=== PATIENT | male | born 1980 | race American Indian/Alaskan Native ===

== ENCOUNTER 2016-10-11 12:44 | Emergency (ER) | payer SELFPAY ==
[2016-10-11 12:53] VITALS: BP 130/79
[2016-10-11 13:19] LABS: Basophils % (Auto) 0.4 % (0.0-1.8); Eosinophils % (Auto) 0.1 % (0.0-4.3); Hematocrit 43.8 % (35.5-45.6); Hemoglobin 14.2 gm/dl (11.8-15.2); Mean Corpuscular HGB Conc 33 % (32-34); Mean Corpuscular Hemoglobin 28 pg (28-32); Mean Corpuscular Volume 85 fl (84-94); Platelet Count 309 K/mm3 (140-440); Red Blood Count 5.14 M/mm3 (3.65-5.03); Red Cell Distribution Width 14.1 % (13.2-15.2); White Blood Count 13.3 K/mm3 (4.5-11.0)
[2016-10-11 13:33] LABS: Alanine Aminotransferase 22 units/L (7-56); Albumin/Globulin Ratio 1.5 %; Alkaline Phosphatase 84 units/L (35-129); Anion Gap 19 mmol/L; BUN/Creatinine Ratio 6.66; Blood Urea Nitrogen 6 mg/dL (9-20); Calcium 9.1 mg/dL (8.4-10.2); Carbon Dioxide 23 mmol/L (22-30); Chloride 104.6 mmol/L (98-107); Glucose 137 mg/dL (75-100); Lipase 17 units/L (13-60); Potassium 3.6 mmol/L (3.6-5.0); Sodium 143 mmol/L (137-145); Total Protein 6.6 g/dL (6.3-8.2)
[2016-10-11 14:16] LABS: Bilirubin,Urine NEG (Negative); Blood,Urine NEG (Negative); Ketones,Urine 20 mg/dL (Negative); Leukocyte Esterase,Urine NEG (Negative); Mucus,Urine 2+ /HPF; Nitrite,Urine NEG (Negative); Protein,Urine <15 mg/dL mg/dL (Negative); Urobilinogen,Urine < 2.0 mg/dL (<2.0)
--- NOTE | 2016-10-13 22:15 | ED Elopement Review ---
ED Pt Elopement review - Results review Lab results: Laboratory Tests 10/11/16 10/11/16 10/11/16 12:56 12:56 13:00 WBC 13.3 H RBC 5.14 H Hgb 14.2 Hct 43.8 MCV 85 MCH 28 MCHC 33 RDW 14.1 Plt Count 309 Lymph % (Auto) 12.9 L [place] % (Auto) 9.4 H Eos % (Auto) 0.1 Baso % (Auto) 0.4 Lymph # 1.7 [place] # 1.3 H Eos # 0.0 Baso # 0.1 Seg Neutrophils % 77.2 H Seg Neutrophils # 10.3 H Sodium 143 Potassium 3.6 Chloride 104.6 Carbon Dioxide 23 Anion Gap 19 BUN 6 L Creatinine 0.9 Estimated GFR > 60 BUN/Creatinine Ratio 6.66 Glucose 137 H Calcium 9.1 Total Bilirubin 1.40 H AST 19 ALT 22 Alkaline Phosphatase 84 Total Protein 6.6 Albumin 4.0 Albumin/Globulin Ratio 1.5 Lipase 17 Urine Color Yellow Urine Turbidity Clear Urine pH 5.0 Ur Specific [place] 1.023 Urine Protein <15 mg/dl Urine Glucose (UA) Neg Urine Ketones 20 Urine Blood Neg Urine Nitrite Neg Urine Bilirubin Neg Urine Urobilinogen < 2.0 Ur Leukocyte Esterase Neg Urine WBC (Auto) 1.0 Urine RBC (Auto) 1.0 Urine Mucus 2+ - Call Back decision Pt Call Back Decision: Call pt to return to ED M[facility] (abd pain needs evaluation)
== END 2016-10-11 20:24 | disposition left against medical advice (07) ==
LOC: ED 12:44
DX: R10.30 Lower abdominal pain, unspecified (principal); K59.00 Constipation, unspecified; F12.90 Cannabis use, unspecified, uncomplicated; Z53.21 Procedure and treatment not carried out due to patient leaving prior to being seen by health care provider
CPT/HCPCS: 36415; 80053; 81001; 83690; 85025